=== PATIENT | male | born 2000 | race Asian ===

== ENCOUNTER 2021-02-14 06:53 | Emergency (ER) | payer OTHER ==
[~2021-02-14] VITALS: Ht 178 cm; Wt 100.0 kg
[2021-02-14 07:36] VITALS: BP 106/74; TEMP 98
[2021-02-14 10:44] VITALS: PULSE 87
== END 2021-02-14 10:44 | disposition home or self-care (01) ==
LOC: COL.ER 06:53
DX: B34.9 Viral infection, unspecified (principal); Z20.822 Contact with and (suspected) exposure to COVID-19